=== PATIENT | female | born 2005 | race Two or more races ===

== ENCOUNTER 2023-04-06 08:03 | Outpatient (CLI) | payer OTHER | END 2023-04-06 09:22 | disposition home or self-care (01) | LOC: PRENATAL 08:03 | PROVIDERS: ATTEND Obstetrics & Gynecology Maternal & Fetal Medicine | DX: O36.80X0 Pregnancy with inconclusive fetal viability, not applicable or unspecified (principal); Z3A.13 13 weeks gestation of pregnancy ==

== ENCOUNTER 2023-08-14 08:47 | Outpatient (CLI) | payer OTHER | END 2023-08-14 09:26 | disposition home or self-care (01) | LOC: PRENATAL 08:47 | PROVIDERS: ATTEND Obstetrics & Gynecology Maternal & Fetal Medicine | DX: O26.849 Uterine size-date discrepancy, unspecified trimester (principal); O36.8199 Decreased fetal movements, unspecified trimester, other fetus; Z3A.32 32 weeks gestation of pregnancy ==

== ENCOUNTER 2023-09-26 13:00 | Inpatient (IN) | payer OTHER ==
[~2023-09-26] VITALS: Ht 162.6 cm; Wt 75.7 kg
[2023-10-01] MEDS ORDERED: PRENATAL TABLE1 EAC1 PO (18:13)
[2023-10-02 17:37] LABS: ABG PH 7.231 (7.35-7.45); ABG PO2 21.7 mmHg (80-100); ABG pCO2 52.3 mmHg (35-45); BASE EXCESS -6.5 mmol/l; BICARBONATE 21.5 mmol/l (23-25); SaO2 25.2 %; Tco2 23.1 mmol/l; o2 21 %
[2023-10-02 23:33] LABS: HEMATOCRIT 34.1 % (36.0-45.00); MEAN CELL VOLUME 91.3 fL (80.00-100.00); MEAN CORPUSCULAR HEMOGLOBIN 31.9 pg (27.00-32.0); MEAN CORPUSCULAR HGB CONC 34.9 g/dl (32.0-36.0); PLATELET COUNT 242 K/uL (150-450); RED BLOOD COUNT 3.73 M/uL (4.00-6.00); RED CELL DISTRIBUTION WIDTH 13.3 % (11.5-14.5)
[2023-10-02 23:37] LABS: HEMOGLOBIN 11.9 g/dL (12.0-15.00)
== END 2023-10-04 13:29 | disposition home or self-care (01) | DRG 807 ==
LOC: OB/GYN 10-02 08:27 → LDR 10-02 08:27 → OB/GYN 10-02 16:49
PROVIDERS: ADMIT Obstetrics & Gynecology; ATTEND Obstetrics & Gynecology
PROC: 10E0XZZ Delivery of Products of Conception, External Approach (ICD-10-PCS; principal; 2023-10-02)
PROC: 0KQM0ZZ Repair Perineum Muscle, Open Approach (ICD-10-PCS; 2023-10-02)
PROC: 4A1HXCZ Monitoring of Products of Conception, Cardiac Rate, External Approach (ICD-10-PCS; 2023-10-02)
DX: O70.1 Second degree perineal laceration during delivery (principal); Z37.0 Single live birth; Z3A.39 39 weeks gestation of pregnancy; Z20.822 Contact with and (suspected) exposure to COVID-19

== ENCOUNTER 2023-10-01 18:08 | Outpatient (CLI) | payer OTHER ==
[2023-10-01] MEDS ORDERED: PRENATAL TABLE1 EAC1 PO (18:13)
[2023-10-01 19:03] LABS: HEMATOCRIT 36.7 % (36.0-45.00); HEMOGLOBIN 12.7 g/dL (12.0-15.00); MEAN CELL VOLUME 92.7 fL (80.00-100.00); MEAN CORPUSCULAR HEMOGLOBIN 32.1 pg (27.00-32.0); MEAN CORPUSCULAR HGB CONC 34.6 g/dl (32.0-36.0); PH,URINE 7.5 (5.0-8.0); PLATELET COUNT 225 K/uL (150-450); RED BLOOD COUNT 3.96 M/uL (4.00-6.00); RED CELL DISTRIBUTION WIDTH 13.2 % (11.5-14.5); URINE APPEARANCE Cloudy; URINE BILIRRUBIN Negative (NEGATIVE); URINE BLOOD Negative; URINE COLOR Yellow; URINE GLUCOSE Negative (NEGATIVE); URINE LEUKOCYTE Negative; URINE NITRATE Negative; URINE PROTEIN Trace (NEGATIVE)
[2023-10-01 19:04] LABS: URINE BACTERIA 568.1 uL (0.0-1933); URINE EPITHELIAL CELLS 28.1 uL (0.0-38.8); URINE RBC 4.4 uL (0.0-20.8)
[2023-10-01 20:46] LABS: CALCIUM 8.5 mg/dL (8.5-10.1); CREATININE SERUM 0.52 mg/dL (0.55-1.02); GFR 151.91; POTASSIUM 4.31 mEq/L (3.5-5.1)
== END 2023-10-02 08:25 | disposition still patient (30) ==
LOC: OBS/DEL 18:08
PROVIDERS: Obstetrics & Gynecology; ATTEND Obstetrics & Gynecology
DX: O26.893 Other specified pregnancy related conditions, third trimester (principal); R10.2 Pelvic and perineal pain; Z3A.39 39 weeks gestation of pregnancy; Z20.822 Contact with and (suspected) exposure to COVID-19